=== PATIENT | male | born 1985 | race Caucasian/White ===

== ENCOUNTER 2022-10-28 08:00 | Outpatient (CLI) | payer MEDICAID ==
--- NOTE | 2022-10-28 20:18 | XRAY Report ---
PROCEDURE: Abdomen Acute INDICATIONS: ACUTE ABDOMINAL PAIN TECHNIQUE: One view chest and two views of the abdomen were acquired. COMPARISON: None. FINDINGS: Surgical changes and devices: None. Chest: Lungs are clear. Heart size is normal. No pleural effusions. No pneumoperitoneum. Abdomen: No definite pathologically dilated gas-filled loops of small bowel identified. Large amount stool present in the colon. Bones: No suspicious bony lesions. IMPRESSION: 1. Nonobstructive bowel gas pattern. 2. No acute cardiopulmonary abnormality. Reviewed by: Michele Arzola MD on 10/28/2022 8:16 PM PDT Approved by: Michele Arzola MD on 10/28/2022 8:16 PM PDT Station ID: [id number]
== END 2022-10-28 23:59 | disposition home or self-care (01) ==
LOC: DI.S 08:00
PROVIDERS: ATTEND Emergency Medicine
DX: R10.9 Unspecified abdominal pain (principal)